=== PATIENT | female | born 1990 | race Caucasian/White ===

== ENCOUNTER → 2018-03-12 | Outpatient (CLI) | payer BC ==
[~2018-03-12] MED LIST: IOHEXOL 240 MG/ML 50ML VIAL. ONE; IOHEXOL 240 MG/ML 50ML VIAL. PO ONE; IOHEXOL 300 MG/ML 75 ML VIAL. IV ONE; IV NORMAL SALINE 1,000ML 1,000 ML ONE
--- NOTE | 2018-03-12 13:42 | RAD ---
CT Abdomen and Pelvis With Intravenous Contrast: History: Bloody stools for 3 months, preprandial and postprandial nausea. Comparison: None. Technique: After administration of oral and intravenous contrast, 75 mL Omnipaque-300, CT of the abdomen and pelvis was performed. Exposure: One or more of the following individualized dose reduction techniques were utilized for this examination: 1. Automated exposure control 2. Adjustment of the mA and/or kV according to patient size 3. Use of iterative reconstruction technique Findings: Right hepatic lobe at the dome demonstrates subcentimeter low-attenuation lesion, too small to characterize. Spleen, pancreas, gallbladder, and bilateral adrenal glands are unremarkable. Bilateral kidneys enhance symmetrically. No bowel obstruction or inflammation is identified. Appendix is without evidence of inflammation. Urinary bladder is unremarkable. Intrauterine device is present. Uterus and adnexa have otherwise unremarkable appearance. No free air or significant free fluid is seen in the abdomen or pelvis. Impression: 1. No acute abnormality identified in the abdomen or pelvis. Electronically signed by: Fan De La O MD (03/12/2018 1:38 PM) [facility]
== END | disposition home or self-care (01) ==
LOC: CT 09:52
PROVIDERS: ATTEND Nurse Practitioner Family
DX: K92.1 Melena (principal); K52.89 Other specified noninfective gastroenteritis and colitis
CPT/HCPCS: 74177; Q9966; Q9967; J7030